=== PATIENT | male | born 2000 | race Caucasian/White ===

== ENCOUNTER 2024-07-27 19:09 | Inpatient (IN) | payer BC, SELFPAY ==
[~2024-07-27] VITALS: Ht 175.3 cm; Wt 63.0 kg
[2024-07-27] MEDS ORDERED: HOME MED LIST COMPLETE! XX SCH (21:05)
[2024-07-27] MEDS ORDERED: diphenhydrAMINE 25MG CAP PO PRN (22:20)
[2024-07-27] MEDS ORDERED: MOM 30ML SUSPENSION UDC PO PRN (22:20)
[2024-07-27] MEDS ORDERED: MAALOX 30 ML SUSP *UDC PO PRN (22:20)
[2024-07-27] MEDS ORDERED: traZODone 50 MG TAB PO PRN (22:20)
[2024-07-27] MEDS ORDERED: LORazepam 1 MG TAB PO PRN (22:20)
[2024-07-27] MEDS ORDERED: ACETAMINOPHEN 325 MG TAB PO PRN (22:20)
[2024-07-27] MEDS ORDERED: IBUPROFEN 400MG TAB PO PRN (22:20)
[2024-07-27 23:45] VITALS: BP 118/68; TEMP 98.2; O2SAT 99
[2024-07-28 06:17] VITALS: BP 123/94; TEMP 97.6; O2SAT 98
[2024-07-28 16:31] VITALS: BP 121/80; TEMP 98.4; O2SAT 100
[2024-07-29 06:15] VITALS: BP 115/69; TEMP 98; O2SAT 98
[2024-07-29 14:35] VITALS: BP 130/66; TEMP 97.9; O2SAT 100
[2024-07-30 06:15] VITALS: BP 115/58; TEMP 97.6; O2SAT 99
[2024-07-30 16:54] VITALS: BP 128/81; TEMP 98.1
[2024-07-31 06:11] VITALS: BP 149/82; TEMP 97.9; O2SAT 99
== END 2024-07-31 10:47 | disposition home or self-care (01) | DRG 755 ==
LOC: M ED 19:09 → M ED INP 22:16 → M PSY 23:38
PROVIDERS: ADMIT Psychiatry & Neurology Psychiatry; ATTEND Psychiatry & Neurology Psychiatry
DX: F43.25 Adjustment disorder with mixed disturbance of emotions and conduct (principal); F10.20 Alcohol dependence, uncomplicated; Z56.0 Unemployment, unspecified; F17.200 Nicotine dependence, unspecified, uncomplicated